=== PATIENT | female | born 1965 | race Caucasian/White ===

== ENCOUNTER 2016-11-02 07:57 | Outpatient (CLI) | payer OTHER ==
[~2016-11-02 07:57] MED LIST: ADDERALL XR25 MG
--- NOTE | 2016-11-02 10:46 | DIAGNOSTIC IMAGING REPORT ---
PROCEDURE: US COMPLETE PELVIC W/TRANSVAG INDICATION: PELVIC PAIN TECHNIQUE: Transabdominal and endovaginal maynard scale and color Doppler sonographic images of the female pelvis were obtained. COMPARISON: None. FINDINGS: TRANSABDOMINAL SCANS: The uterus is of normal size 6.4 x 5.8 x 4.8 cm Kidneys are normal. TRANSVAGINAL SCANS: The uterus is anteverted. Myometrium contains a two fibroids measuring 9 and 10 mm. The endometrium measures nine mm. Right ovary is normal measuring 3.2 x 2.1 x 1.2 centimeter The left ovary is normal measuring 3.0 x 2.4 x 2.1 cm. There is a 2 cm follicle on the left ovary. Multiple Nabothian cysts. IMPRESSION: 1. 2 fibroids measuring 9 and 10 mm. 2. 2 cm follicle left ovary. 3. Multiple Nabothian cysts
== END 2016-11-02 23:00 ==
LOC: US SRH 07:57
DX: D25.9 Leiomyoma of uterus, unspecified (principal); N88.8 Other specified noninflammatory disorders of cervix uteri; Z78.0 Asymptomatic menopausal state

== ENCOUNTER 2016-11-09 13:16 | Outpatient (CLI) | payer OTHER ==
--- NOTE | 2016-11-09 16:59 | DIAGNOSTIC IMAGING REPORT ---
PROCEDURE: MG BILATERAL SCREENING W/CAD INDICATION: Screening. Baseline. TECHNIQUE: Bilateral CC and MLO digital views. COMPARISON: None. FINDINGS: Computer-aided detection applied. Mildly to moderately dense. No evidence of mass or suspicious calcification IMPRESSION: 1. Negative mammogram RESULT CODE: 1- Negative. A. A negative report should not delay biopsy if a dominant or clinically suspicious mass is present. 10-15% of cancers are not identified by x-ray. B. A negative report may reinforce clinical impression. C. Adenosis and dense breasts may obscure an underlying neoplasm. D. False positive reports average 6-10%. E.. A yearly screening mammogram is recommended. A reminder letter will be scheduled.
== END 2016-11-09 23:00 ==
LOC: MAM SRH 13:16
DX: Z12.31 Encounter for screening mammogram for malignant neoplasm of breast (principal)